=== PATIENT | female | born 1935 | race Caucasian/White ===

== ENCOUNTER → 2016-07-20 | Outpatient (CLI) | payer MEDICARE, OTHER ==
[~2016-07-20] MED LIST: ALPRAZOLAM0.5 MG PO; CATAPRES TTS 3 P1 EA TD; COUMADIN3 MG PO; FOLIC ACID 1 MG1 MG PO; KENALOG 0.5% CR15 GM TOP; KLOR-CON M2020 MEQ PO; LASIX 40 MG TAB40 MG PO; LORTAB 5-325 M1 EACH PO; METHOTREXATE T2.5 MG PO; NITROGLYCERIN1 EAC1 TD; NORVASC 5 MG TAB5 MG PO; PREDNISONE2.5 MG PO; PROTONIX40 MG PO; RIVASTIGMINE4.5 MG PO; ZYLOPRIM 100 M100 MG PO
== END ==
LOC: LAB 15:50
DX: Z51.81 Encounter for therapeutic drug level monitoring (principal); Z79.01 Long term (current) use of anticoagulants; I82.529 Chronic embolism and thrombosis of unspecified iliac vein
CPT/HCPCS: 85610